=== PATIENT | female | born 1960 | race Caucasian/White ===

== ENCOUNTER 2023-05-16 04:26 | Day surgery (SDC) | payer OTHER ==
[2023-04-05 11:36] VITALS: BMI 27.0
[2023-05-16 09:48] VITALS: TEMP 98.6
[2023-05-16 09:51] VITALS: RESP 18
[2023-05-16 11:33] VITALS: BP 144/88; PULSE 81
== END 2023-05-16 11:41 | disposition home or self-care (01) ==
LOC: JASU-ENDO 04:26
PROVIDERS: ATTEND Internal Medicine Gastroenterology
PROC: 0DJD8ZZ Inspection of Lower Intestinal Tract, Via Natural or Artificial Opening Endoscopic (ICD-10-PCS; principal; 2023-05-16 09:00)
DX: Z12.11 Encounter for screening for malignant neoplasm of colon (principal); I10 Essential (primary) hypertension